=== PATIENT | female | born 1985 | race Caucasian/White ===

== ENCOUNTER → 2016-09-09 | Outpatient (CLI) | payer OTHER ==
[~2016-09-09] VITALS: Ht 167.6 cm; Wt 72.7 kg
[~2016-09-09] MED LIST: ATIVAN 0.50.5 MG/TAB PO; MIRENA52 MG IY; ZOLOFT 50MG50 MG PO
[2016-09-09 14:41] VITALS: BP 129/87; PULSE 82; TEMP 98.3
== END ==
LOC: COL.ER 14:37
DX: Z02.89 Encounter for other administrative examinations (principal)